=== PATIENT | female | born 1985 | race Caucasian/White ===

== ENCOUNTER 2021-12-23 21:44 | Emergency (ER) | payer OTHER, MEDICAID, SELFPAY ==
[2021-12-23 21:58] VITALS: BP 145/75; PULSE 63; RESP 14; TEMP 36.8; O2SAT 96; BMI 32.3
--- NOTE | 2021-12-23 22:08 | DI.US.S_ITS ---
PROCEDURE: US OB <= 14 WEEKS FETUS INDICATIONS: 7 WEEKS, BLEEDING, RLQ PAIN OUTSIDE/PRIOR DATING DATA: Last menstrual period (LMP): 11/07/2021. LMP-based estimated date of delivery (SOLOMON): 08/14/2022. First dating scan (date and location): 12/23/2021. Estimated date of delivery (SOLOMON) from first dating scan: 08/14/2022. TECHNIQUE: Real-time scanning was performed of the fetus and maternal pelvic organs, with image documentation. Endovaginal scanning was also performed to better visualize the fetus and maternal ovaries. COMPARISON: None. FINDINGS: Embryo: There is an intrauterine with a gestational sac, yolk sac, and pole identified. The crown-rump length measures 0.7 cm corresponding to a gestational age of 6 weeks 4 days. There is heart motion with a rate of 80 beats per minute visualized. There is a hypoechoic collection adjacent to the gestational sac measuring approximately 0.7 x 0.2 x 0.5 cm suggestive of a subchorionic hematoma. Maternal organs: Ovaries appear within normal size limits, with a thick-walled cyst in the right ovary measuring up to 2.4 cm demonstrated likely representing a corpus luteal cyst.. IMPRESSION: 1. Single living intrauterine with calculated gestational age of 7 weeks 4 days. 2. heart motion of 80 beats per minute. Although this may reflect early gestational age, clinical follow-up is recommended and if indicated a short-term repeat ultrasound may be performed for further evaluation. 3. Suspected small subchorionic hematoma. 4. Probable corpus luteal cyst in the right ovary. We strive to produce accurate, complete, and clear reports of imaging services. To assist us in improving patient care, this report was composed using standard report templates and voice recognition software. Therefore, it may contain abnormal punctuation, insertions and/or omissions. Occasional wrong-word or sound-alike substitutions may occur. Though we review the report and make efforts to correct it, we do recommend that the report be read carefully in proper context to recognize any text inaccuracies. Dictated by: Keanu Meier M.D. on 12/24/2021 at 0:05 Approved by: Keanu Meier M.D. on 12/24/2021 at 0:10
[2021-12-23 22:44] LABS: Bacteria Urine Moderate (10-30); Culture Indicated Urine Specimen Cultured; RBC Urine None Seen (0-5/HPF); Squamous Epithelial Cell Urine 1-5 /HPF (0-5/HPF); WBC Urine 1-5/HPF (0-5/HPF)
--- NOTE | 2021-12-23 23:23 | ED_ITS ---
HPI - General Chief complaint: Vaginal Bleeding Stated complaint: 7 wks , vaginal bleeding, ABD pain, Nausea Time Seen by Provider: 12/23/21 22:43 Source: patient Mode of arrival: Ambulatory Limitations: no limitations History of Present Illness HPI Narrative: Patient is a 36-year-old female , presents today with his vaginal bleeding and rate lower quadrant pain. She has not yet established care with official court interpreter. This is a surprise but welcome . She has been quite nauseous and taking Z ofran which is now made her very constipated. She has not had any fever or chills. She has had quite a bit of blood in the toilet. Related Data Allergies Allergy/AdvReac Type Severity Reaction Status Date / Time cefaclor [From [facility]] Allergy Verified 12/23/21 22:04 Review of Systems Review of Systems Narrative: GENERAL: Denies chills, fatigue, malaise, fever, sweats, travel HEENT: Denies sinus pain, ear pain, sore throat, difficulty swallowing, neck pain RESPIRATORY: Denies dyspnea, cough, wheezing, hemoptysis, sputum. CARDIOVASCULAR: Denies chest pain, palpitations, orthopnea, edema GASTROINTESTINAL: Denies nausea, vomiting, abdominal pain, diarrhea, constipation, melena. : Denies dysuria, frequency, incontinence, hematuria, urinary retention, flank pain. MUSCULOSKELETAL: Denies weakness, joint pain, or bony pain SKIN: No rash, no erythema, no pruritus NEUROLOGIC: Denies weakness, dizziness, headache, numbness, change in speech, confusion PSYCHIATRIC: No concerning psychosocial issues. 12 point review of systems is negative except for those stated above and HPI Exam Initial Vital Signs Initial Vital Signs: Vital Signs Temperature 98.3 F 12/23/21 21:58 Pulse Rate 63 12/23/21 21:58 Respiratory Rate 14 12/23/21 21:58 Blood Pressure 145/75 H 12/23/21 21:58 Pulse Oximetry 96 12/23/21 21:58 Oxygen Delivery Method 12/23/21 21:58 GENERAL: Alert well-appearing 36-year-old female and in no acute distress. HEENT: Head atraumatic,EOMI, pupils reactive, face symmetric, moist mucous membranes CARDIOVASCULAR: Regular rate and rhythm without murmurs, rubs or gallops. RESPIRATORY: Breath sounds equal bilaterally, no wheezes rales or rhonchi. ABDOMEN: Soft, minimal right lower quadrant pain no guarding no rebound EXTREMITIES: Normal range of motion, no clubbing or edema. Neurovascularly intact NEUROLOGICAL: Alert and oriented x4.Normal gait and speech. SKIN: Warm, dry, no laceration, no petechiae, no rashes or lesions. Course Orders Ordered: ED Orders 12/23/21 22:08 US OB <= 14 weeks fetus Stat 12/23/21 22:13 Urine Culture Stat Urine Microscopic Stat 12/23/21 23:15 ABO RH Type Stat CMP [Comprehensive Metabolic Panel] Stat Complete Blood Count AUTO DIFF Stat HCG Quantitative /Beta subunit Stat Vital Signs Vital signs: Vital Signs - 8 hr 12/23/21 21:58 Temperature 98.3 F Pulse Rate 63 Respiratory Rate 14 Blood Pressure 145/75 H Pulse Oximetry 96 Oxygen Delivery Method Room Air MDM - OB/Uterine Contractions Lab Data Result diagrams: 12/23/21 23:15 12/23/21 23:15 Labs: Lab Results 12/23/21 12/23/21 12/23/21 Range/Units 22:13 23:15 23:15 WBC 9.2 (4.5-11.0) X10^3/uL RBC 4.16 (4.0-5.2) X10^6/uL Hgb 13.2 (12.0-16.0) g/dL Hct 37.7 (36-46) % MCV 90.6 (80-100) fL MCH 31.7 (26-34) PG MCHC 34.9 (30-36) % RDW 13.4 (11.6-14.8) % Plt Count 184 (150-400) X10^3/uL Neut % (Auto) 67.8 (50-75) % Lymph % (Auto) 22.7 L (25-40) % [place] % (Auto) 7.3 (3-14) % Eos % (Auto) 1.6 L (2-4) % Baso % (Auto) 0.6 (0-2) % Neut # (Auto) 6200 (0701-2061) /uL Lymph # (Auto) 2100 (5719-4961) /uL [place] # (Auto) 700 (0-900) /uL Eos # (Auto) 200 (0-450) /uL Baso # (Auto) 100 (0-100) /uL Sodium 136 L (137-145) mmol/L Potassium 3.3 L (3.4-5.1) mmol/L Chloride 105 (98-107) mmol/L Carbon Dioxide 20 L (22-32) mmol/L BUN 16 (7-17) mg/dL Creatinine 0.68 (0.52-1.04) mg/dL Estimated GFR > 60 (>60) mL/min BUN/Creatinine Ratio 23.5 H (6-22) Glucose 86 (70-100) mg/dL Calcium 9.2 (8.4-10.2) mg/dL Total Bilirubin 1.1 (0.2-1.3) mg/dL AST 25 (14-36) IU/L ALT 24 (<35) IU/L Alkaline Phosphatase 55 (38-126) U/L Total Protein 7.3 (6.3-8.2) g/dL Albumin 4.3 (3.5-5.0) g/dL Globulin 3.0 (1.7-4.1) g/dL Albumin/Globulin Ratio 1.4 (1.0-2.8) HCG, Quant 15100 mIU/mL Urine RBC None seen (0-5/HPF) Urine WBC 1-5/hpf (0-5/HPF) Ur Squamous Epith Cells 1-5 /hpf (0-5/HPF) Urine Bacteria Moderate (10-30) H (None) Ur Culture Indicated? Specimen cultured Blood Type 12/23/21 Range/Units 23:15 WBC (4.5-11.0) X10^3/uL RBC (4.0-5.2) X10^6/uL Hgb (12.0-16.0) g/dL Hct (36-46) % MCV (80-100) fL MCH (26-34) PG MCHC (30-36) % RDW (11.6-14.8) % Plt Count (150-400) X10^3/uL Neut % (Auto) (50-75) % Lymph % (Auto) (25-40) % [place] % (Auto) (3-14) % Eos % (Auto) (2-4) % Baso % (Auto) (0-2) % Neut # (Auto) (6072-8487) /uL Lymph # (Auto) (8464-8231) /uL [place] # (Auto) (0-900) /uL Eos # (Auto) (0-450) /uL Baso # (Auto) (0-100) /uL Sodium (137-145) mmol/L Potassium (3.4-5.1) mmol/L Chloride (98-107) mmol/L Carbon Dioxide (22-32) mmol/L BUN (7-17) mg/dL Creatinine (0.52-1.04) mg/dL Estimated GFR (>60) mL/min BUN/Creatinine Ratio (6-22) Glucose (70-100) mg/dL Calcium (8.4-10.2) mg/dL Total Bilirubin (0.2-1.3) mg/dL AST (14-36) IU/L ALT (<35) IU/L Alkaline Phosphatase (38-126) U/L Total Protein (6.3-8.2) g/dL Albumin (3.5-5.0) g/dL Globulin (1.7-4.1) g/dL Albumin/Globulin Ratio (1.0-2.8) HCG, Quant mIU/mL Urine RBC (0-5/HPF) Urine WBC (0-5/HPF) Ur Squamous Epith Cells (0-5/HPF) Urine Bacteria (None) Ur Culture Indicated? Blood Type O Positive Point of Care Testing Test Results Positive Urine Dip Bedside Urine Glucose Negative Bedside Urine Bilirubin - Negative Bedside Urine Ketone ++ 40 Urine Specific [place] 1.015 Bedside Urine Occult Blood +++ Bedside Urine pH 6.0 Bedside Urine Protein - Negative Bedside Urine Urobilinogen - Negative Bedside Urine Nitrite - Negative Bedside Urine Leukocytes - Negative Esterase Imaging Data US - OB: Radiologist's Impression: Ultrasound Report Signed Patient: Cori Adler MR#: [id number] : 1985 Acct:[id number] Age/Sex: 36 / F Date of Service: 12/23/21 Loc: ED Accession Number: [id number] ?? Procedure: US OB <= 14 weeks fetus Ordering Provider: Kaylee Chávez D.O. PROCEDURE:? US OB <= 14 WEEKS FETUS ? INDICATIONS:? 7 WEEKS,? BLEEDING, RLQ PAIN ? OUTSIDE/PRIOR DATING DATA:? Last menstrual period (LMP):? 11/07/2021.? LMP-based estimated date of delivery (SOLOMON):? 08/14/2022.? First dating scan (date and location):? 12/23/2021.? Estimated date of delivery (SOLOMON) from first dating scan:? 08/14/2022. ? TECHNIQUE:? Real-time scanning was performed of the fetus and maternal pelvic organs, with image documentation.? Endovaginal scanning was also performed to better visualize the fetus and maternal ovaries.? ? COMPARISON:? None. ? FINDINGS:? ? Embryo:? There is an intrauterine with a gestational sac, yolk sac, and pole identified.? The crown-rump length measures 0.7 cm corresponding to a gestational age of 6 weeks 4 days.? There is heart motion with a rate of 80 beats per minute visualized.? There is a hypoechoic collection adjacent to the gestational sac measuring approximately 0.7 x 0.2 x 0.5 cm suggestive of a subchorionic hematoma. ? Maternal organs:? Ovaries appear within normal size limits, with a thick-walled cyst in the right ovary measuring up to 2.4 cm demonstrated likely representing a corpus luteal cyst.. ? ? ? IMPRESSION:? ? 1. Single living intrauterine with calculated gestational age of 7 weeks 4 days.? ? 2. heart motion of 80 beats per minute.? Although this may reflect early gestational age, clinical follow-up is recommended and if indicated a short-term repeat ultrasound may be performed for further evaluation. ? 3. Suspected small subchorionic hematoma. ? 4. Probable corpus luteal cyst in the right ovary.? ? We strive to produce accurate, complete, and clear reports of imaging services. To assist us in improving patient care, this report was composed using standard report templates and voice recognition software. Therefore, it may contain abnormal punctuation, insertions and/or omissions. Occasional wrong-word or sound-alike substitutions may occur. Though we review the report and make efforts to correct it, we do recommend that the report be read carefully in proper context to recognize any text inaccuracies. ? ? ? Dictated by: Keanu Meier M.D. on 12/24/2021 at 0:05 ? ? Approved by: Keanu Meier M.D. on 12/24/2021 at 0:10 ? MDM Narrative Medical decision making narrative: Patient overall appears well. HCG is 60,000. However ultrasound concerning for fetus bradycardia. At discussed with patient and partner is need for close follow-up and repeat hCG. Discussed risk of possible miscarriage. Discharge Plan Departure Patient Disposition: Home Clinical Impression: Threatened Instructions: Threatened Miscarriage Activity Restrictions/Additional Instructions: [id number] Blood type O+ *You have been diagnosed with threatened *What to do: At this time he will need your hCG recheck to 48 hours. Please call your OB, to let them know. You will probably need a repeat ultrasound an about 1-2 weeks as well. Recommend pelvic rest, nothing in her out of the vagina the bleeding has stopped. Baby heart rate is noted to be slow, please be sure to follow up closely this week. Increase fluid intake, continue prune juice. *Continue to take medications as directed Docusate 100mg 1-2 times a day as needed for constipation *Follow up with your primary care provider in 2-3 days or call [phone] Follow-up with OB in 48 hours, call tomorrow so they can order blood work *Return to ER if you should have increased vaginal bleeding, increased cramping and pain or any new, worsening or concerning symptoms
[2021-12-23 23:29] LABS: Add Manual Diff / Slide Review NO; Basophils Absolute Auto 100 /uL (0-100); Basophils Percent Auto 0.6 % (0-2); Eosinophils Absolute Auto 200 /uL (0-450); Eosinophils Percent Auto 1.6 % (2-4); Hematocrit 37.7 % (36-46); Hemoglobin 13.2 g/dL (12.0-16.0); Lymphocytes Absolute Auto 2100 /uL (1100-4500); Lymphocytes Percent Auto 22.7 % (25-40); Mean Corpuscular HGB Conc 34.9 % (30-36); Mean Corpuscular Hemoglobin 31.7 PG (26-34); Mean Corpuscular Volume 90.6 fL (80-100); Monocytes Absolute Auto 700 /uL (0-900); Monocytes Percent Auto 7.3 % (3-14); Neutrophils Absolute Auto 6200 /uL (1500-7000); Neutrophils Percent Auto 67.8 % (50-75); Platelet Count 184 X10^3/uL (150-400); Red Blood Cell Count 4.16 X10^6/uL (4.0-5.2); Red Cell Distribution Width 13.4 % (11.6-14.8); White Blood Cell Count 9.2 X10^3/uL (4.5-11.0)
[2021-12-23 23:39] LABS: Alanine Aminotransferase 24 IU/L (<35); Albumin 4.3 g/dL (3.5-5.0); Albumin Globulin Ratio 1.4 (1.0-2.8); Alkaline Phosphatase 55 U/L (38-126); Aspartate Aminotransferase 25 IU/L (14-36); BUN Creatinine Ratio 23.5 (6-22); Bilirubin Total 1.1 mg/dL (0.2-1.3); Blood Urea Nitrogen 16 mg/dL (7-17); Calcium 9.2 mg/dL (8.4-10.2); Carbon Dioxide 20 mmol/L (22-32); Chloride 105 mmol/L (98-107); Estimated Glomerular Filt Rate > 60 mL/min (>60); Glucose 86 mg/dL (70-100); HEMOLYSIS < 15 (0-50); Potassium 3.3 mmol/L (3.4-5.1); Sodium 136 mmol/L (137-145); Total Protein 7.3 g/dL (6.3-8.2)
[2021-12-23 23:58] LABS: HCG Quantitative /Beta subunit 60103 mIU/mL
[2021-12-24 00:24] VITALS: BP 117/63; PULSE 65; RESP 18; O2SAT 97
== END 2021-12-24 00:25 | disposition home or self-care (01) ==
PROVIDERS: Emergency Provider Emergency Medicine
DX: R11.10 Vomiting, unspecified (principal); O20.0 Threatened abortion; Z3A.01 Less than 8 weeks gestation of pregnancy
CPT/HCPCS: 36415; 76801; 76817; 80053; 81003; 81015; 81025; 84702; 85025; 86900; 86901; 87086; 99283